=== PATIENT | male | born 1935 | race Hispanic/Latino ===

== ENCOUNTER 2021-06-30 12:46 | Emergency (ER) | payer MEDICARE, OTHER ==
[~2021-06-30] VITALS: Ht 170.2 cm; Wt 74.8 kg
[2021-06-30] MEDS ORDERED: ACETAMINOPHEN 325 MG TAB PO ONE (13:30)
[2021-06-30] MEDS ORDERED: LIDOCAINE 1% W/EPINEPHRINE 20 ML VIAL INJ ONE (13:30)
[2021-06-30] MEDS ORDERED: TETANUS/DIPHTHERIA TOX ADULT 0.5 ML SYR IM ONE (13:30)
== END 2021-06-30 18:00 | disposition home or self-care (01) ==
LOC: ER 12:51
DX: S06.0X0A Concussion without loss of consciousness, initial encounter (principal); S01.01XA Laceration without foreign body of scalp, initial encounter; S16.1XXA Strain of muscle, fascia and tendon at neck level, initial encounter; W01.0XXA Fall on same level from slipping, tripping and stumbling without subsequent striking against object, initial encounter; Y93.01 Activity, walking, marching and hiking; Y92.89 Other specified places as the place of occurrence of the external cause; I10 Essential (primary) hypertension; I48.91 Unspecified atrial fibrillation; G20 Parkinson's disease
CPT/HCPCS: 70450; 72125; 90714; 99283

== ENCOUNTER 2021-09-30 17:33 | Emergency (ER) | payer MEDICARE ==
[~2021-09-30] VITALS: Ht 170.2 cm; Wt 74.8 kg
[2021-09-30 18:13] LABS: BASOPHILS # (AUTO) 0.1 (0.0-0.1); BASOPHILS % 0.8 % (0.0-1.0); EOSINOPHILS # (AUTO) 0.2 (0.0-0.4); EOSINOPHILS % 2.5 % (0.0-6.0); HEMATOCRIT 39.3 % (38.2-49.6); LYMPHOCYTES # (AUTO) 1.6 (1.0-3.2); LYMPHOCYTES % 21.4 % (18.0-39.1); MEAN CORPUSCULAR HEMOGLOBIN 34.8 pg (28-32); MEAN CORPUSCULAR HGB CONC 33.1 g/dL (31-35); MEAN CORPUSCULAR VOLUME 105.1 fL (81-99); MONOCYTES # (AUTO) 0.9 (0.2-0.8); MONOCYTES % 11.9 % (4.4-11.3); NEUTROPHILS # (AUTO) 4.7 (2.1-6.9); PLATELET COUNT 211 x10e3/uL (140-360); RED BLOOD COUNT 3.74 x10e6/uL (4.3-5.7); RED CELL DISTRIBUTION WIDTH 13.3 % (11.7-14.4)
[2021-09-30 18:32] LABS: ALBUMIN 3.5 g/dL (3.5-5.0); ALBUMIN/GLOBULIN RATIO 0.9 (0.8-2.0); CALCIUM 8.7 mg/dL (8.4-10.2); CREATININE, SERUM 1.44 mg/dL (0.72-1.25)
[2021-09-30 19:16] LABS: CLARITY,URINE SL CLOUDY (CLEAR); COLOR,URINE YELLOW (YELLOW); KETONES,URINE NEGATIVE (NEGATIVE); LEUKOCYTE ESTERASE ,URINE NEGATIVE (NEGATIVE); NITRITE,URINE NEGATIVE (NEGATIVE); PROTEIN,URINE DIPSTICK NEGATIVE (NEGATIVE); URINE UROBILINOGEN 1 mg/dL (0.2 - 1)
[2021-09-30 19:24] LABS: AMORPHOUS SEDIMENT,URINE MODERATE (FEW); BACTERIA,URINE FEW /HPF; MUCUS,URINE FEW (RARE)
[2021-09-30 20:24] VITALS: BP 205/115
== END 2021-09-30 20:10 | disposition home or self-care (01) ==
LOC: ER 17:45
DX: S00.81XA Abrasion of other part of head, initial encounter (principal); W18.30XA Fall on same level, unspecified, initial encounter; Y92.008 Other place in unspecified non-institutional (private) residence as the place of occurrence of the external cause; G20 Parkinson's disease; I10 Essential (primary) hypertension; I48.91 Unspecified atrial fibrillation; R94.31 Abnormal electrocardiogram [ECG] [EKG]
CPT/HCPCS: 36415; 70450; 71045; 72125; 80053; 81001; 84484; 85025; 99284

== ENCOUNTER 2021-12-22 19:37 | Emergency (ER) | payer MEDICARE ==
[~2021-12-22] VITALS: Ht 170.2 cm; Wt 74.8 kg
[2021-12-22] MEDS ORDERED: ACETAMINOPHEN 325 MG TAB PO ONE (20:05)
[2021-12-22] MEDS ORDERED: ACETAMINOPHEN 325 MG TAB ONE (20:16)
[2021-12-22 20:26] LABS: BASOPHILS % 0.4 % (0.0-1.0); EOSINOPHILS # (AUTO) 0.1 (0.0-0.4); EOSINOPHILS % 0.5 % (0.0-6.0); HEMATOCRIT 39.1 % (38.2-49.6); HEMOGLOBIN 13.1 g/dL (14.0-18.0); LYMPHOCYTES # (AUTO) 1.2 (1.0-3.2); LYMPHOCYTES % 13.3 % (18.0-39.1); MEAN CORPUSCULAR HEMOGLOBIN 33.9 pg (28-32); MEAN CORPUSCULAR HGB CONC 33.5 g/dL (31-35); MONOCYTES # (AUTO) 1.4 (0.2-0.8); MONOCYTES % 15.3 % (4.4-11.3); NEUTROPHILS # (AUTO) 6.4 (2.1-6.9); NEUTROPHILS % 69.7 % (38.7-80.0); PLATELET COUNT 211 x10e3/uL (140-360); RED BLOOD COUNT 3.87 x10e6/uL (4.3-5.7); RED CELL DISTRIBUTION WIDTH 13.3 % (11.7-14.4)
[2021-12-22 20:45] LABS: ALBUMIN 3.5 g/dL (3.5-5.0); ALBUMIN/GLOBULIN RATIO 0.8 (0.8-2.0); CALCIUM 8.5 mg/dL (8.4-10.2); CREATININE, SERUM 1.05 mg/dL (0.72-1.25)
[2021-12-22 20:53] LABS: CREATINE KINASE MB 5.1 ng/mL (0-5.0)
[2021-12-22] MEDS ORDERED: SODIUM CHLORIDE 0.9% 1000ML 1,000 ML IV ONE (21:30)
[2021-12-22] MEDS ORDERED: BEBTELOVIMAB 175 MG INJ IV ONE (22:30)
[2021-12-23 02:05] VITALS: BP 157/81
== END 2021-12-23 02:00 | disposition home or self-care (01) ==
LOC: ER 19:55
DX: U07.1 COVID-19 (principal); R50.9 Fever, unspecified; R53.1 Weakness; I10 Essential (primary) hypertension; I48.91 Unspecified atrial fibrillation; G20 Parkinson's disease; R94.31 Abnormal electrocardiogram [ECG] [EKG]
CPT/HCPCS: 36415; 70450; 71045; 80053; 82550; 82553; 83605; 84484; 85025; 87040; 93005; 99284; J7030; U0002

== ENCOUNTER 2022-04-20 18:37 | Inpatient (IN) | payer MEDICARE ==
[~2022-04-20] VITALS: Ht 170.2 cm; Wt 84.8 kg
[2022-04-20] MEDS ORDERED: SODIUM CHLORIDE 0.9% 1000ML 1,000 ML IV SCH (19:30)
[2022-04-20 19:48] LABS: BASOPHILS % 0.2 % (0.0-1.0); HEMATOCRIT 38.1 % (38.2-49.6); HEMOGLOBIN 12.9 g/dL (14.0-18.0); LYMPHOCYTES # (AUTO) 0.9 (1.0-3.2); LYMPHOCYTES % 4.1 % (18.0-39.1); MEAN CORPUSCULAR HEMOGLOBIN 33.9 pg (28-32); MEAN CORPUSCULAR HGB CONC 33.9 g/dL (31-35); MONOCYTES # (AUTO) 2.1 (0.2-0.8); MONOCYTES % 9.8 % (4.4-11.3); NEUTROPHILS # (AUTO) 17.7 (2.1-6.9); NEUTROPHILS % 85.1 % (38.7-80.0); PLATELET COUNT 263 x10e3/uL (140-360); RED BLOOD COUNT 3.81 x10e6/uL (4.3-5.7); RED CELL DISTRIBUTION WIDTH 14.1 % (11.7-14.4)
[2022-04-20 20:03] LABS: ALBUMIN 3.7 g/dL (3.5-5.0); ALBUMIN/GLOBULIN RATIO 0.8 (0.8-2.0); ANION GAP 17.7 mmol/L (8-16); CALCIUM 9.3 mg/dL (8.4-10.2); CREATININE, SERUM 1.33 mg/dL (0.72-1.25); POTASSIUM 3.7 mmol/L (3.5-5.1)
[2022-04-20 20:42] LABS: CLARITY,URINE CLEAR (CLEAR); COLOR,URINE YELLOW (YELLOW); KETONES,URINE NEGATIVE (NEGATIVE); LEUKOCYTE ESTERASE ,URINE TRACE (NEGATIVE); NITRITE,URINE NEGATIVE (NEGATIVE); PROTEIN,URINE DIPSTICK NEGATIVE (NEGATIVE); URINE UROBILINOGEN 0.2 mg/dL (0.2 - 1)
[2022-04-20 20:49] LABS: BACTERIA,URINE MODERATE /HPF
[2022-04-20] MEDS ORDERED: ACETAMINOPHEN 325 MG TAB PO PRN (21:00)
[2022-04-20] MEDS ORDERED: HYDRALAZINE HCL 25 MG TAB PO SCH (21:15)
[2022-04-20] MEDS: METOPROLOL SUCCINATE 50 MG TAB XL PO SCH (21:33)
[2022-04-20 23:44] VITALS: BP 174/89
[2022-04-21] VITALS (7 sets, daily range): BP systolic 124–198; BP diastolic 82–96
[2022-04-21] MEDS: SODIUM CHLORIDE 0.9% 1000ML 1,000 ML IV SCH ×2 (00:02→05:12)
[2022-04-21] MEDS ORDERED: SILVADENE20 GM (05:18)
[2022-04-21] MEDS ORDERED: METOPROLOL SUC100 MG PO (05:18)
[2022-04-21] MEDS ORDERED: NUPLAZID34 MG PO (05:18)
[2022-04-21] MEDS ORDERED: FLECAINIDE ACET50 MG PO (05:18)
[2022-04-21] MEDS ORDERED: CARBIDOPA-LEVO1 EAC1 PO (05:18)
[2022-04-21] MEDS ORDERED: FLUTICASONE PRO16 GM NS (05:18)
[2022-04-21] MEDS ORDERED: CILOSTAZOL50 MG PO (05:18)
[2022-04-21] MEDS ORDERED: CARBIDOPA-LEVO1 EAC5 PO (05:18)
[2022-04-21] MEDS ORDERED: HYDRALAZINE HCL25 MG PO (05:18)
[2022-04-21 05:52] LABS: BASOPHILS # (AUTO) 0.1 (0.0-0.1); BASOPHILS % 0.4 % (0.0-1.0); EOSINOPHILS # (AUTO) 0.1 (0.0-0.4); EOSINOPHILS % 0.3 % (0.0-6.0); HEMATOCRIT 33.9 % (38.2-49.6); HEMOGLOBIN 11.7 g/dL (14.0-18.0); LYMPHOCYTES # (AUTO) 1.3 (1.0-3.2); LYMPHOCYTES % 7.1 % (18.0-39.1); MEAN CORPUSCULAR HEMOGLOBIN 33.8 pg (28-32); MEAN CORPUSCULAR HGB CONC 34.5 g/dL (31-35); MONOCYTES # (AUTO) 1.7 (0.2-0.8); MONOCYTES % 9.5 % (4.4-11.3); NEUTROPHILS % 82.2 % (38.7-80.0); PLATELET COUNT 231 x10e3/uL (140-360); RED BLOOD COUNT 3.46 x10e6/uL (4.3-5.7); RED CELL DISTRIBUTION WIDTH 14.3 % (11.7-14.4)
[2022-04-21] MEDS: HYDRALAZINE HCL 25 MG TAB PO SCH ×4 (05:53→21:58)
[2022-04-21 06:16] LABS: ANION GAP 13.5 mmol/L (8-16); CALCIUM 8.4 mg/dL (8.4-10.2); CREATININE, SERUM 0.89 mg/dL (0.72-1.25); POTASSIUM 3.5 mmol/L (3.5-5.1)
[2022-04-21] MEDS ORDERED: ONDANSETRON HCL INJ 2MG/ML 2ML 2 MG/ML VIAL IV PRN (09:45)
[2022-04-21] MEDS: CLONIDINE HCL 0.1 MG TAB PO PRN (10:21)
[2022-04-21] MEDS: FLUTICASONE PROPIONATE NASAL SPRAY NS SCH ×2 (11:00→17:00)
[2022-04-21] MEDS: ENOXAPARIN SOD INJ 40 MG/0.4 ML SYR SC SCH (17:22)
[2022-04-21] MEDS: CARBIDOPA/LEVODOPA 25/100 CR TAB PO SCH (17:23)
[2022-04-21] MEDS: CILOSTAZOL 100 MG TAB PO SCH (17:26)
[2022-04-21] MEDS: FLECAINIDE ACETATE 100 MG TAB PO SCH (17:27)
[2022-04-21] MEDS: METOPROLOL SUCCINATE 50 MG TAB XL PO SCH (21:58)
[2022-04-21] MEDS: TAMSULOSIN HCL 0.4 MG CAP PO SCH (21:58)
[2022-04-22] VITALS (8 sets, daily range): BP systolic 149–183; BP diastolic 61–94
[2022-04-22 05:33] LABS: BASOPHILS # (AUTO) 0.1 (0.0-0.1); BASOPHILS % 0.5 % (0.0-1.0); EOSINOPHILS # (AUTO) 0.2 (0.0-0.4); EOSINOPHILS % 1.4 % (0.0-6.0); HEMATOCRIT 34.3 % (38.2-49.6); HEMOGLOBIN 11.4 g/dL (14.0-18.0); LYMPHOCYTES # (AUTO) 1.2 (1.0-3.2); LYMPHOCYTES % 10.4 % (18.0-39.1); MEAN CORPUSCULAR HEMOGLOBIN 33.8 pg (28-32); MEAN CORPUSCULAR HGB CONC 33.2 g/dL (31-35); MEAN CORPUSCULAR VOLUME 101.8 fL (81-99); MONOCYTES # (AUTO) 1.3 (0.2-0.8); NEUTROPHILS % 76.2 % (38.7-80.0); PLATELET COUNT 216 x10e3/uL (140-360); RED BLOOD COUNT 3.37 x10e6/uL (4.3-5.7); RED CELL DISTRIBUTION WIDTH 14.2 % (11.7-14.4)
[2022-04-22 05:53] LABS: ANION GAP 12.5 mmol/L (8-16); CALCIUM 8.5 mg/dL (8.4-10.2); CREATININE, SERUM 0.94 mg/dL (0.72-1.25); POTASSIUM 3.5 mmol/L (3.5-5.1)
[2022-04-22] MEDS: FLUTICASONE PROPIONATE NASAL SPRAY NS SCH ×2 (09:00→15:47)
[2022-04-22] MEDS: PIMAVANSERIN TARTRATE 34 MG PO SCH (09:00)
[2022-04-22] MEDS: FLECAINIDE ACETATE 100 MG TAB PO SCH ×2 (09:34→17:10)
[2022-04-22] MEDS: CILOSTAZOL 100 MG TAB PO SCH ×2 (09:34→17:10)
[2022-04-22] MEDS: CARBIDOPA/LEVODOPA 25/100 CR TAB PO SCH ×2 (09:35→17:11)
[2022-04-22] MEDS: HYDRALAZINE HCL 25 MG TAB PO SCH ×3 (09:35→21:45)
[2022-04-22] MEDS ORDERED: ONDANSETRON HCL 4 MG ORAL DISINTEGRATING TAB PO PRN (10:45)
[2022-04-22] MEDS: SILVER SULFADIAZINE 50GM CREAM TOP SCH (10:50)
[2022-04-22] MEDS: ENOXAPARIN SOD INJ 40 MG/0.4 ML SYR SC SCH (17:10)
[2022-04-22] MEDS: CLONIDINE HCL 0.1 MG TAB PO PRN (17:11)
[2022-04-22] MEDS: METOPROLOL SUCCINATE 50 MG TAB XL PO SCH (21:45)
[2022-04-22] MEDS: TAMSULOSIN HCL 0.4 MG CAP PO SCH (21:45)
[2022-04-23] VITALS: BP 165/82
[2022-04-23 04:00] VITALS: BP 145/67
[2022-04-23 05:48] LABS: BASOPHILS % 0.5 % (0.0-1.0); EOSINOPHILS # (AUTO) 0.2 (0.0-0.4); EOSINOPHILS % 3.5 % (0.0-6.0); HEMATOCRIT 32.7 % (38.2-49.6); HEMOGLOBIN 10.7 g/dL (14.0-18.0); LYMPHOCYTES # (AUTO) 0.8 (1.0-3.2); LYMPHOCYTES % 12.2 % (18.0-39.1); MEAN CORPUSCULAR HEMOGLOBIN 33.1 pg (28-32); MEAN CORPUSCULAR HGB CONC 32.7 g/dL (31-35); MEAN CORPUSCULAR VOLUME 101.2 fL (81-99); MONOCYTES # (AUTO) 0.9 (0.2-0.8); MONOCYTES % 14.1 % (4.4-11.3); NEUTROPHILS # (AUTO) 4.3 (2.1-6.9); NEUTROPHILS % 69.2 % (38.7-80.0); PLATELET COUNT 212 x10e3/uL (140-360); RED BLOOD COUNT 3.23 x10e6/uL (4.3-5.7); RED CELL DISTRIBUTION WIDTH 13.9 % (11.7-14.4)
[2022-04-23 08:34] VITALS: BP 142/92
[2022-04-23] MEDS: PIMAVANSERIN TARTRATE 34 MG PO SCH (09:00)
[2022-04-23] MEDS ORDERED: CIPRO500 MG PO (10:38)
[2022-04-23] MEDS ORDERED: CLONIDINE HCL0.1 MG PO (11:08)
[2022-04-23 11:44] VITALS: BP 178/88
[2022-04-23] MEDS: HYDRALAZINE HCL 25 MG TAB PO SCH (12:39)
[2022-04-23] MEDS: SILVER SULFADIAZINE 50GM CREAM TOP SCH (12:39)
[2022-04-23] MEDS: CILOSTAZOL 100 MG TAB PO SCH (12:39)
[2022-04-23] MEDS: FLUTICASONE PROPIONATE NASAL SPRAY NS SCH (12:39)
[2022-04-23] MEDS: CARBIDOPA/LEVODOPA 25/100 CR TAB PO SCH (12:39)
[2022-04-23] MEDS: FLECAINIDE ACETATE 100 MG TAB PO SCH (12:39)
== END 2022-04-23 14:50 | disposition home or self-care (01) | DRG 872 ==
LOC: ER 19:32 → ERHOLD 21:03 → MED/SURG2 23:27 → OBSVTOIN 04-21 12:06
PROVIDERS: ADMIT Internal Medicine; ATTEND Internal Medicine
DX: A41.51 Sepsis due to Escherichia coli [E. coli] (principal); N39.0 Urinary tract infection, site not specified; N17.9 Acute kidney failure, unspecified; R65.20 Severe sepsis without septic shock; G20 Parkinson's disease; N40.1 Benign prostatic hyperplasia with lower urinary tract symptoms; R33.8 Other retention of urine; Z20.822 Contact with and (suspected) exposure to COVID-19; I48.0 Paroxysmal atrial fibrillation; Z79.01 Long term (current) use of anticoagulants
CPT/HCPCS: 36415; 70450; 71045; 80048; 80053; 81001; 83605; 85025; 87040; 87071; 87086; 87186; 87205; 93005; 94799; 99251; 99284; G0378; J0696; J1650; J7030

== ENCOUNTER 2022-05-13 06:10 | Emergency (ER) | payer MEDICARE ==
[~2022-05-13] VITALS: Ht 170.2 cm; Wt 79.8 kg
[~2022-05-13 06:10] MED LIST: CARBIDOPA-LEVO1 EAC1 PO; CARBIDOPA-LEVO1 EAC5 PO; CILOSTAZOL50 MG PO; CIPRO500 MG PO; CLONIDINE HCL0.1 MG PO; FLECAINIDE ACET50 MG PO; FLUTICASONE PRO16 GM NS; HYDRALAZINE HCL25 MG PO; METOPROLOL SUC100 MG PO; NUPLAZID34 MG PO; SILVADENE20 GM
== END 2022-05-13 08:04 | disposition home or self-care (01) ==
LOC: ER 06:21
DX: S00.83XA Contusion of other part of head, initial encounter (principal); S80.812A Abrasion, left lower leg, initial encounter; S80.811A Abrasion, right lower leg, initial encounter; W06.XXXA Fall from bed, initial encounter; Y93.84 Activity, sleeping; Y92.092 Bedroom in other non-institutional residence as the place of occurrence of the external cause; G20 Parkinson's disease; I10 Essential (primary) hypertension; I48.91 Unspecified atrial fibrillation
CPT/HCPCS: 70450; 72125; 99283

== ENCOUNTER 2022-06-16 19:38 | Emergency (ER) | payer MEDICARE ==
[~2022-06-16] VITALS: Ht 172.7 cm; Wt 83.9 kg
[2022-06-16 21:58] LABS: BASOPHILS # (AUTO) 0.1 (0.0-0.1); BASOPHILS % 0.9 % (0.0-1.0); EOSINOPHILS # (AUTO) 0.2 (0.0-0.4); EOSINOPHILS % 3.8 % (0.0-6.0); HEMATOCRIT 41.1 % (38.2-49.6); HEMOGLOBIN 13.5 g/dL (14.0-18.0); LYMPHOCYTES # (AUTO) 1.3 (1.0-3.2); LYMPHOCYTES % 24.4 % (18.0-39.1); MEAN CORPUSCULAR HEMOGLOBIN 33.2 pg (28-32); MEAN CORPUSCULAR HGB CONC 32.8 g/dL (31-35); MONOCYTES # (AUTO) 0.7 (0.2-0.8); MONOCYTES % 13.3 % (4.4-11.3); NEUTROPHILS # (AUTO) 3.2 (2.1-6.9); NEUTROPHILS % 57.4 % (38.7-80.0); PLATELET COUNT 239 x10e3/uL (140-360); RED BLOOD COUNT 4.07 x10e6/uL (4.3-5.7); RED CELL DISTRIBUTION WIDTH 13.2 % (11.7-14.4)
[2022-06-16 22:04] LABS: CLARITY,URINE SL CLOUDY (CLEAR); COLOR,URINE AMBER (YELLOW)
[2022-06-16 22:05] LABS: LEUKOCYTE ESTERASE ,URINE NEGATIVE (NEGATIVE); NITRITE,URINE NEGATIVE (NEGATIVE); PROTEIN,URINE DIPSTICK TRACE (NEGATIVE)
[2022-06-16 22:06] LABS: KETONES,URINE TRACE (NEGATIVE); URINE UROBILINOGEN 2 mg/dL (0.2 - 1)
[2022-06-16 22:13] LABS: BACTERIA,URINE FEW /HPF
[2022-06-16 22:18] LABS: ALBUMIN 3.4 g/dL (3.5-5.0); ALBUMIN/GLOBULIN RATIO 0.7 (0.8-2.0); ANION GAP 15.7 mmol/L (8-16); CALCIUM 9.8 mg/dL (8.4-10.2); CREATININE, SERUM 1.22 mg/dL (0.72-1.25); POTASSIUM 3.7 mmol/L (3.5-5.1)
[2022-06-16 23:38] VITALS: BP 179/95
== END 2022-06-16 23:39 | disposition home or self-care (01) ==
LOC: ER 19:54
DX: R50.9 Fever, unspecified (principal); F03.90 Unspecified dementia, unspecified severity, without behavioral disturbance, psychotic disturbance, mood disturbance, and anxiety; I10 Essential (primary) hypertension; R94.31 Abnormal electrocardiogram [ECG] [EKG]
CPT/HCPCS: 36415; 70450; 80053; 81001; 84484; 85025; 87086; 93005; 99284